=== PATIENT | female | born 1985 | race Caucasian/White ===

== ENCOUNTER 2016-10-26 18:34 | Emergency (ER) | payer MEDICAID, OTHER ==
[~2016-10-26] VITALS: Wt 113.5 kg
--- NOTE | 2016-10-26 20:25 | ERD ---
ER Documentation Chief Complaint Date/Time DATE: 10/26/16 TIME: 20:23 Chief Complaint 12 WKS PREG WITH VAG BLEED FOR 1 WK, GETTING WORSE TODAY. NO DYSURIA HPI This is a 31-year-old female who presents to the emergency department today complaining of vaginal bleeding for the past week. Patient states she is 3 months . States that she followed up with her primary care doctor last week and was told not to worry about it if it was only a little bit. Patient states that the bleeding is getting progressively heavier. States that she has a history of anemia. Denies any fevers or chills, dysuria. ROS All systems reviewed and are negative except as per history of present illness. Medications Home Meds Active Scripts Acetaminophen* (Tylophen*) 500 Mg Capsule, 1 CAP PO Q6H Y for PAIN AND OR ELEVATED TEMP, #30 CAP Prov:BUTCH BERGERON PA-C 10/26/16 Allergies Allergies: Coded Allergies: No Known Allergy (Verified , 07/29/14) Physical Exam Vitals Vital Signs Date Time Temp Pulse Resp B/P Pulse Ox O2 Delivery O2 Flow Rate FiO2 10/26/16 18:57 98.8 85 20 119/66 100 Physical Exam Const: No acute distress, obese Head: Atraumatic Eyes: Normal Conjunctiva ENT: Normal External Ears, Nose and Mouth. Neck: Full range of motion..~ No meningismus. Resp: Clear to auscultation bilaterally Cardio: Regular rate and rhythm, no murmurs Abd: Soft, suprapubic tenderness non distended. Normal bowel sounds. No right lower quadrant pain. No left lower quadrant pain. Skin: No petechiae or rashes Back: No midline or flank tenderness Ext: No cyanosis, or edema Neur: Awake and alert Psych: Normal Mood and Affect Result Diagram: 10/26/16 2100 Results 24 hrs Laboratory Tests Test 10/26/16 20:51 10/26/16 21:00 Urine Bacteria FEW Urine Bilirubin NEGATIVE Urine Clarity CLOUDY Urine Color DARK YELLOW Urine Glucose NEGATIVE% Urine Hemoglobin 3+ Urine Ketones NEGATIVE Urine Leukocyte Esterase NEGATIVE Urine Microscopic RBC >200/HPF Urine Microscopic WBC 0-2/HPF Urine Nitrite NEGATIVE Urine Specific [place] 1.010 Urine Squamous Epithelial Cells MODERATE Urine Total Protein TRACE Urine Urobilinogen 0.2 E.U./dL Urine pH 6.0 Basophils # 0.010^3/ul Basophils % 0.5% Beta HCG, Quantitative 1783.4mIU/ml Eosinophils # 0.110^3/ul Eosinophils % 1.7% Hematocrit 35.4% Hemoglobin 11.3g/dl Lymphocytes # 2.910^3/ul Lymphocytes % 38.2% Mean Corpuscular Hemoglobin 27.6pg Mean Corpuscular Hemoglobin Concent 31.9g/dl Mean Corpuscular Volume 86.6fl Mean Platelet Volume 10.6fl Monocytes # 0.510^3/ul Monocytes % 7.0% Neutrophils # 4.010^3/ul Neutrophils % 52.3% Nucleated Red Blood Cells # 0.010^3/ul Nucleated Red Blood Cells % 0.0/100WBC Platelet Count 59570^3/UL Red Blood Count 4.0910^6/ul Red Cell Distribution Width 14.1% White Blood Count 7.610^3/ul DIAGNOSTIC IMAGING REPORT Patient: IVETTE MOORE : 1985 Age: 31 Sex: F MR #: [id number] DOS: 10/26/16 0000 Ordering MD: BUTCH BERGERON PA-C Location: [facility] Room/Bed: PROCEDURE: First trimester obstetrical ultrasound. CLINICAL INDICATION: , pelvic pain TECHNIQUE: Transabdominal and transvaginal parker scale and color Doppler ultrasound of the uterus . COMPARISON: None available FINDINGS: A single intrauterine gestation is present within the uterine fundus. No evidence of extrauterine gestation. Mean sac diameter: 3.65 cm [place]-rump length: 1.31 cm heart rate: 0 Beats per minute No evidence of subchorionic hemorrhage. Ovaries are not imaged. Free fluid: None. IMPRESSION: Failed intrauterine gestation with an estimated gestational age of 8 weeks 2 days by ultrasound criteria. Results were discussed with OSMAN Bergeron by telephone at 2107 hours on 10/26/[address] Marcos Gomez RPTAT: AADD .Marcos Gomez MD, MD Date Time Electronically viewed and signed by .Marcos Gomez MD, MD on 10/26/2016 21:08 .B/ CC: BUTCH BERGERON PA-C Procedures/MDM This is a 31-year-old female who presents the emergency department today for vaginal bleeding for the past week. Patient indicated she is 3 months . Given this I did obtain a complete OB workup. Laboratory work shows no elevated white blood cell count. Her hemoglobin is mildly decreased. UA is negative for infection Beta quant hCG 1783.4 Rh status A positive Ultrasound shows a single intrauterine gestation present within the uterine fundus however there is no heart rate. There is no evidence of subchorionic hemorrhage. There is no free fluid. There appears to be a failed intrauterine gestation with an estimated gestational age of 8 weeks and 2 days by ultrasound criteria. Patient symptoms at this time consistent with vaginal bleeding and patient less than 20 weeks and likely missed . Patient declined pain medication here in the emergency department. She will be given a prescription for Tylenol for home. She is hemodynamically stable. She should follow-up with her primary care physician in the next 48 hours for repeat beta quant and ultrasound.. I have explained this to the patient. I explained to the patient she may continue to have vaginal bleeding. Patient understood. At this time the patient is stable for discharge and outpatient management. Patient should follow up with their PCP in the next 1-2 days. They may return to the emergency department sooner for any persistent or worsening of symptoms. Patient understood and agreed with the plan. I discussed the patient with Dr. Caba and he is in agreement with the plan. Departure Diagnosis: Primary Impression: Vaginal bleeding in patient at less than 20 weeks gestation Condition: Fair BUTCH BERGERON PA-C Oct 26, 2016 20:25
--- NOTE | 2016-10-26 21:08 | RADRPT ---
PROCEDURE: First trimester obstetrical ultrasound. CLINICAL INDICATION: , pelvic pain TECHNIQUE: Transabdominal and transvaginal parker scale and color Doppler ultrasound of the uterus . COMPARISON: None available FINDINGS: A single intrauterine gestation is present within the uterine fundus. No evidence of extrauterine gestation. Mean sac diameter: 3.65 cm [place]-rump length: 1.31 cm heart rate: 0 Beats per minute No evidence of subchorionic hemorrhage. Ovaries are not imaged. Free fluid: None. IMPRESSION: Failed intrauterine gestation with an estimated gestational age of 8 weeks 2 days by ultrasound rosalinda garcia. Results were discussed with OSMAN Hernandez by telephone at 2107 hours on 10/26/[address] Marcos samuels RPTAT: AADD .Marcos Gomez MD, Date Time Electronically viewed and signed by .Marcos Gomez MD, on 10/26/2016 21:08 .B/
[2016-10-26 21:13] LABS: ADD SCAN DIFF NO
[2016-10-26 21:19] LABS: BASOPHILS % 0.5 % (0.0-2.0); EOSINOPHILS # 0.1 10^3/ul (0.0-0.5); EOSINOPHILS % 1.7 % (0.0-7.0); HEMATOCRIT 35.4 % (37.0-47.0); HEMOGLOBIN 11.3 g/dl (12.0-16.0); LYMPHOCYTES # 2.9 10^3/ul (0.8-2.9); LYMPHOCYTES % 38.2 % (15.0-51.0); MEAN CORPUSCULAR HEMOGLOBIN 27.6 pg (29.0-33.0); MEAN CORPUSCULAR HGB CONC 31.9 g/dl (32.0-37.0); MEAN CORPUSCULAR VOLUME 86.6 fl (82.0-101.0); MEAN PLATELET VOLUME 10.6 fl (7.4-10.4); MONOCYTE # 0.5 10^3/ul (0.3-0.9); NEUTROPHILS % 52.3 % (39.0-77.0); PLATELET COUNT 334 10^3/UL (140-415); RED BLOOD COUNT 4.09 10^6/ul (4.20-5.40); RED CELL DISTRIBUTION WIDTH 14.1 % (11.5-14.5); WHITE BLOOD COUNT 7.6 10^3/ul (4.8-10.8)
[2016-10-26 21:25] LABS: ADD UMIC YES; URINE BILIRUBIN (Dip) NEGATIVE (NEGATIVE); URINE BLOOD (Dip) 3+ (NEGATIVE); URINE GLUCOSE (Dip) NEGATIVE (NEGATIVE); URINE KETONES (Dip) NEGATIVE (NEGATIVE); URINE LEUKOCYTE ESTERASE (Dip) NEGATIVE (NEGATIVE); URINE NITRITE (Dip) NEGATIVE (NEGATIVE); URINE TOTAL PROTEIN (Dip) TRACE (NEGATIVE); URINE UROBILINOGEN (Dip) 0.2 E.U./dL (0.1-1.0)
[2016-10-26 21:42] LABS: URINE COLOR DARK YELLOW (YELLOW)
[2016-10-26 21:51] LABS: BACTERIA,URINE FEW; SQUAMOUS EPITHELIAL CELL,UR MODERATE; URINE RBCS >200 /HPF (0)
[2016-10-26] MEDS ORDERED: ACET500C5 PO (22:07)
[2016-10-26 23:00] VITALS: BP 130/80; PULSE 80; RESP 20; TEMP 98
== END 2016-10-27 05:03 | disposition home or self-care (01) ==
LOC: FTE 18:34
DX: O20.9 Hemorrhage in early pregnancy, unspecified (principal); R10.2 Pelvic and perineal pain; Z3A.08 8 weeks gestation of pregnancy
CPT/HCPCS: 36415; 76805; 81001; 84702; 85025; 86900; 86901; Z7502; 81003